=== PATIENT | male | born 1960 | race Caucasian/White ===

== ENCOUNTER 2024-09-04 20:21 | Inpatient (IN) | payer OTHER, SELFPAY ==
[2024-09-04] VITALS (7 sets, daily range): BP systolic 112–128; BP diastolic 65–79; BMI 27.8
--- NOTE | 2024-09-04 16:41 | ED.GENMED ---
ED Provider Triage
<Andriy Woods PA-C - Last Filed: 09/05/24 10:15>
-
Patient seen by provider in Triage?: Seen in Triage
Attestation: A medical screening examination has been initiated by a qualified medical provider. Based on the assessment performed at this time, it has been determined that an emergent medical condition may exist and the patient has been informed
that further medical evaluation and possible additional diagnostic testing may be needed.
HPI: 64-year-old male presents for evaluation after a unwitnessed syncopal event. He states he was walking up a flight of stairs when he began to feel sweaty and lightheaded, states he sat down to get his bearings when he lost consciousness. No
prior history of syncope. Denies any prodrome of chest pain, palpitations, or shortness of breath. Feels well currently. Does endorse mild dizziness ongoing for the past 2 to 3 days prior to this event. No new prescription medications
GENERAL: Alert , in no apparent distress
EYE: No visual abnormalities.
NECK: Trachea midline
ENT: No visible abnormalities.
LUNGS: No acute respiratory distress
NEUROLOGICAL: Alert and oriented
SKIN: Skin intact. No visible changes.
MUSCULOSKELETAL: Moving extremities normally
PSYCH: Normal and appropriate interaction.
A/P: Appears well, initial triage EKG shows normal sinus rhythm with PVCs, will check basic labs, vital signs normal
This is a medical evaluation conducted in person to initiate diagnostic evaluation and provide initial therapeutics. Please see further documentation by the treating clinician.
History of Present Illness
<Andriy Woods PA-C - Last Filed: 09/05/24 10:15>
General
Chief Complaint: Fainting/Passed Out
Time Seen by Provider: 09/04/24 19:19
<Santiago Holt MD - Last Filed: 09/04/24 19:42>
General
Source: patient
Exam Limitations: none
History of Present Illness
History of Present Illness:
Patient describing a few days of lightheadedness with standing. Feels slightly off. Also had some diarrhea with dark stool. No abdominal pain chest pain or shortness of breath. No significant symptoms at rest. Occasional Advil or Motrin but
nothing significant. Sounds like fairly regular alcohol use but mostly socially.
Past History
<Santiago Holt MD - Last Filed: 09/04/24 19:42>
Past History
ED Past Medical History: None
ED Past Surgical History: Urological and Other (Hernia repair)
Review of Systems
<Santiago Holt MD - Last Filed: 09/04/24 19:42>
Review of Systems
All Other Systems: Not applicable
Respiratory: Reports no symptoms; Denies trouble breathing
Cardiac: Denies chest pain or palpitations
Phy Exam
<Santiago Holt MD - Last Filed: 09/04/24 19:42>
Physical Exam
Physical Exam:
GENERAL: Alert and oriented in no apparent distress
EYE: Orbits normal.
NECK: Supple, no significant adenopathy.
ENT: Pharynx without erythema
CARDIAC: Borderline tachycardia and regular no murmur.
LUNGS: Clear breath sounds,normal
ABDOMEN: Soft, without focal tenderness or distention. Stool minimal in nature but clearly test positive
NEUROLOGICAL: Alert and oriented , grossly non-focal
SKIN: Warm and dry, no rash or lesion, no discoloration, skin intact.
MUSCULOSKELETAL: No edema,no deformity.Good color
PSYCH: Normal and appropriate interaction.
Course
<Andriy Woods PA-C - Last Filed: 09/05/24 10:15>
Orders/Labs/Results
Orders:
Orders
09/04/24 Dinner
Clear Liquid
At Your Request: Full Participation
09/04/24 16:21
Electrocardiogram (*1) Urgent
Reason for Study: Chest Pain
EKG- Treatment ONCE
09/04/24 16:49
Complete Blood Count/With Diff Urgent
Comprehensive Metabolic Panel Urgent
Ferritin Urgent
Comment: ADDON
Folate Urgent
Comment: ADDON
Iron Urgent
Comment: ADDON
Total Iron Binding Urgent
Comment: ADDPON
Vitamin B12 Urgent
Comment: ADDON
09/04/24 19:39
Cardiac Monitoring- Treatment ONCE
IV Insert/Care/Rem.- Treatment PRN
0.9% Sodium Chloride 500 ml [Nss] 500 ml IV BOLUS
Pantoprazole [Protonix IV] 80 mg IV NOW STA
09/04/24 20:04
Type+Screen Urgent
PT/INR [Prothrombin Time] Urgent
PTT Urgent
09/04/24 20:10
Admit/Transfer Patient As Directed
Co-Sign Provider:
Level of Care: Inpatient admission
Assign to:: Telemetry
Physician / Group: morgan
Diagnosis: syncope, UGIB
Reason for Telemetry: Arrhythmia
Date to Stop Telemetry: 09/07/24
Time to Stop Telemetry: 11:00
Reason for Hospitalization: syncope, UGIB
Expected length of stay greater than two midnights?: Yes
ELOS- Estimated Length of Stay in days: 2
I certify the patient meets the requirements for IP care: Yes
Code Status As Directed
Resuscitation Status: Full Code
PRN Pain Medication Management As Directed
May give lesser potent ordered pain med per pt: Yes
preference::
Protocol:: Medication orders for pain may be administered in a
manner that supports deferring to patient preference
when the pt is:
- Requesting an ordered lesser potent pain medication.
Least to most potent pain medications are defined
as: acetaminophen < NSAID < tramadol < opioids
(morphine, oxycodone, hydromorphone).
- Requesting a lesser dose of the same medication IF
ORDERED.
- Requesting a less intrusive route of administration
if both routes are prescribed by the provider (PO <
IV).
09/04/24 20:27
ABO2 Urgent
BBK Wristband Number:
Associate notified that ABO2 has been ordered: CAT
Date: 09/04/24
Time: 20:17
Move Coordinator ID: [id number]
09/04/24 21:41
Pantoprazole 80 mg/100 ml Nss [Protonix] 80 mg in 100 ml IV Q10H
09/04/24 21:41
Activity As Directed
Activity Level: As Tolerated
Pneumatic Compression Sleeves As Directed
Type: Knee high
Vital Signs As Directed
Frequency: Per unit guidelines
DX Deep Vein Thrombosis Video Routine
09/05/24 05:22
Complete Blood Count/With Diff IN AM
Comprehensive Metabolic Panel IN AM
09/05/24 Breakfast
NPO
Allow oral meds: Yes
Allow clear liquids: No
09/07/24 11:00
DC Protocol for Telemetry ONCE
Abnormal Lab Results
09/04/24 09/04/24
16:49 20:04
WBC 12.0 H 10^3/uL
(4.8-10.8)
RBC 3.21 L 10^6/uL
(4.70-6.10)
Hgb 9.6 L g/dL
(13.0-18.0)
Hct 27.4 L %
(39.0-52.0)
MPV 10.7 H fL
(7.4-10.4)
Abs Immat Gran (auto) 0.1 H 10^3/uL
(0-0.05)
Absolute Neuts (auto) 8.5 H 10^3/uL
(1.4-6.5)
Absolute Monos (auto) 0.9 H 10^3/uL
(0.1-0.6)
Immature Gran % 0.8 H %
(0-0.5)
Lymphocytes % 19.5 L %
(20.5-51.1)
APTT 22.2 L Sec
(23.4-35.0)
Chloride 108 H mmol/L
(98-107)
Carbon Dioxide 21 L mmol/L
(22-30)
BUN 43 H mg/dl
(9-20)
Glucose 129 H mg/dl
(70-99)
Total Protein 5.9 L g/dl
(6.3-8.2)
POC Glucose 125 H mg/dl
(70-99)
09/04/24 16:49
09/04/24 16:49
Vital Signs
Initial and Last Documented VS:
Initial Vital Signs
Temp Pulse Resp BP Pulse Ox
98.1 F 112 18 116/79 99
09/04/24 16:32 09/04/24 16:32 09/04/24 16:32 09/04/24 16:32 09/04/24 16:32
Last Documented Vital Signs
Temp Pulse Resp BP Pulse Ox
98.1 F 76 19 122/82 99
09/04/24 16:32 09/05/24 08:30 09/05/24 08:30 09/05/24 08:18 09/05/24 08:18
<Santiago Holt MD - Last Filed: 09/04/24 19:42>
Orders/Labs/Results
Orders:
Orders
09/04/24 Dinner
Clear Liquid
At Your Request: Full Participation
09/04/24 16:21
Electrocardiogram (*1) Urgent
Reason for Study: Chest Pain
EKG- Treatment ONCE
09/04/24 16:49
Complete Blood Count/With Diff Urgent
Comprehensive Metabolic Panel Urgent
Ferritin Urgent
Comment: ADDON
Folate Urgent
Comment: ADDON
Iron Urgent
Comment: ADDON
Total Iron Binding Urgent
Comment: ADDPON
Vitamin B12 Urgent
Comment: ADDON
09/04/24 19:39
Cardiac Monitoring- Treatment ONCE
IV Insert/Care/Rem.- Treatment PRN
0.9% Sodium Chloride 500 ml [Nss] 500 ml IV BOLUS
Pantoprazole [Protonix IV] 80 mg IV NOW STA
09/04/24 20:04
Type+Screen Urgent
PT/INR [Prothrombin Time] Urgent
PTT Urgent
09/04/24 20:10
Admit/Transfer Patient As Directed
Co-Sign Provider:
Level of Care: Inpatient admission
Assign to:: Telemetry
Physician / Group: morgan
Diagnosis: syncope, UGIB
Reason for Telemetry: Arrhythmia
Date to Stop Telemetry: 09/07/24
Time to Stop Telemetry: 11:00
Reason for Hospitalization: syncope, UGIB
Expected length of stay greater than two midnights?: Yes
ELOS- Estimated Length of Stay in days: 2
I certify the patient meets the requirements for IP care: Yes
Code Status As Directed
Resuscitation Status: Full Code
PRN Pain Medication Management As Directed
May give lesser potent ordered pain med per pt: Yes
preference::
Protocol:: Medication orders for pain may be administered in a
manner that supports deferring to patient preference
when the pt is:
- Requesting an ordered lesser potent pain medication.
Least to most potent pain medications are defined
as: acetaminophen < NSAID < tramadol < opioids
(morphine, oxycodone, hydromorphone).
- Requesting a lesser dose of the same medication IF
ORDERED.
- Requesting a less intrusive route of administration
if both routes are prescribed by the provider (PO <
IV).
09/04/24 20:27
ABO2 Urgent
BBK Wristband Number:
Associate notified that ABO2 has been ordered: CAT
Date: 09/04/24
Time: 20:17
Move Coordinator ID: [id number]
09/04/24 21:41
Pantoprazole 80 mg/100 ml Nss [Protonix] 80 mg in 100 ml IV Q10H
09/04/24 21:41
Activity As Directed
Activity Level: As Tolerated
Pneumatic Compression Sleeves As Directed
Type: Knee high
Vital Signs As Directed
Frequency: Per unit guidelines
DX Deep Vein Thrombosis Video Routine
09/05/24 05:22
Complete Blood Count/With Diff IN AM
Comprehensive Metabolic Panel IN AM
09/05/24 Breakfast
NPO
Allow oral meds: Yes
Allow clear liquids: No
09/07/24 11:00
DC Protocol for Telemetry ONCE
Abnormal Lab Results
09/04/24 09/04/24
16:49 20:04
WBC 12.0 H 10^3/uL
(4.8-10.8)
RBC 3.21 L 10^6/uL
(4.70-6.10)
Hgb 9.6 L g/dL
(13.0-18.0)
Hct 27.4 L %
(39.0-52.0)
MPV 10.7 H fL
(7.4-10.4)
Abs Immat Gran (auto) 0.1 H 10^3/uL
(0-0.05)
Absolute Neuts (auto) 8.5 H 10^3/uL
(1.4-6.5)
Absolute Monos (auto) 0.9 H 10^3/uL
(0.1-0.6)
Immature Gran % 0.8 H %
(0-0.5)
Lymphocytes % 19.5 L %
(20.5-51.1)
APTT 22.2 L Sec
(23.4-35.0)
Chloride 108 H mmol/L
(98-107)
Carbon Dioxide 21 L mmol/L
(22-30)
BUN 43 H mg/dl
(9-20)
Glucose 129 H mg/dl
(70-99)
Total Protein 5.9 L g/dl
(6.3-8.2)
POC Glucose 125 H mg/dl
(70-99)
09/04/24 16:49
09/04/24 16:49
Vital Signs
Initial and Last Documented VS:
Initial Vital Signs
Temp Pulse Resp BP Pulse Ox
98.1 F 112 18 116/79 99
09/04/24 16:32 09/04/24 16:32 09/04/24 16:32 09/04/24 16:32 09/04/24 16:32
Last Documented Vital Signs
Temp Pulse Resp BP Pulse Ox
98.1 F 76 19 122/82 99
09/04/24 16:32 09/05/24 08:30 09/05/24 08:30 09/05/24 08:18 09/05/24 08:18
<Santiago Holt MD - Last Filed: 09/04/24 19:42>
MDM/Problems Addressed
Differential Diagnosis Includes:
Patient with upper GI bleed. Hemoglobin 9.6 which I am sure is not his baseline. Elevated BUN. Positive stool. Protonix admission type and screen
<Andriy Woods PA-C - Last Filed: 09/05/24 10:15>
*Critical Care Note
Total Time (30-74mins, 75-104mins- exclusive of procedures): Not Applicable
<Santiago Holt MD - Last Filed: 09/04/24 19:42>
*Pulse Oximetry
Patient hypoxic: no
*EKG
Interpreted by ED Provider?: Yes
Interpretation: abnormal
Comparison EKG: no comparison EKG present
Heart Rate: 88
Rate: normal
Rhythm: sinus and PAC's
[place]: normal axis
Interval: normal interval
QRS Pattern: normal QRS
Ischemia: non-specific ST changes
ED Attending Note
<Andriy Woods PA-C - Last Filed: 09/05/24 10:15>
-
Portions of this chart may have been created with voice recognition software.� Occasional wrong word or��sound alike� substitutions may have occurred due to the inherent limitations of voice recognition software.
Discharge Plan
Departure
Patient Disposition: Admit
Date of Disposition: 09/04/24
Time of Disposition: 19:41
Presentation/result/management discussed w/ accepting MD/DO: Hospitalist
Discharge Problem:
Upper GI bleed
Interventions
Interventions:
*Risk Screen - Suicide Last Done: 09/04/24 16:32
*General Assessment Last Done: 09/04/24 17:59
*Neglect/Abuse Screening Last Done: 09/04/24 17:59
ED- Fall Risk Assessment Last Done: 09/04/24 17:59
*ED COVID-19 Vaccine History Last Done: 09/04/24 16:32
ED- Cardiac Assessment Last Done: 09/04/24 18:01
ED- Neurological Assessment Last Done: 09/04/24 17:59
[2024-09-04 16:51] LABS: Glucose - Point of Care 125 mg/dl (70-99)
[2024-09-04 17:03] LABS: % Basophils 0.6 % (0-2); % Eosinophils 0.9 % (0-6); % Immature Granulocytes 0.8 % (0-0.5); % Lymphocytes 19.5 % (20.5-51.1); % Monocytes 7.6 % (1.7-9.3); % Neutrophils 70.6 % (42.2-75.2); Absolute Basophils 0.1 10^3/uL (0-0.2); Absolute Eosinophils 0.1 10^3/uL (0-0.7); Absolute Immature Granulocytes 0.1 10^3/uL (0-0.05); Absolute Lymphocytes 2.3 10^3/uL (1.2-3.4); Absolute Monocytes 0.9 10^3/uL (0.1-0.6); Absolute Neutrophils 8.5 10^3/uL (1.4-6.5); Hematocrit 27.4 % (39.0-52.0); Hemoglobin 9.6 g/dL (13.0-18.0); Mean Corpuscular Hgb 29.9 pg (27.0-31.0); Mean Corpuscular Volume 85.4 fL (80.0-94.0); Mean Platelet Volume 10.7 fL (7.4-10.4); Nucleated Red Blood Cells % 0 % (-); Platelet Count 193 10^3/uL (130-400); Red Blood Cell Count 3.21 10^6/uL (4.70-6.10); Red Cell Dist. Width 14.2 % (11.5-14.5)
[2024-09-04 17:16] LABS: ALT (SGPT) 22 U/L (0-50); AST (SGOT) 27 U/L (17-59); Albumin 3.6 g/dl (3.5-5.0); Alkaline Phosphatase 70 U/L (38-126); Blood Urea Nitrogen 43 mg/dl (9-20); Calcium 9.1 mg/dl (8.4-10.2); Carbon Dioxide 21 mmol/L (22-30); Chloride 108 mmol/L (98-107); Glucose 129 mg/dl (70-99); Potassium 4.4 mmol/L (3.5-5.1); Sodium 140 mmol/L (135-145); Total Bilirubin 0.2 mg/dl (0.2-1.3); Total Protein 5.9 g/dl (6.3-8.2); eGFR > 60.00
[2024-09-04] MEDS: NSS 500 IV (19:59)
[2024-09-04] MEDS: PROTONIX IV 80 MG IV (20:02)
--- NOTE | 2024-09-04 20:19 | HPS.HSE ---
Family Physician
-
Family Physician: Santiago Mcdonald
Chief Complaint
-
syncope
History of Present Illness
64-year-old male past medical history of borderline elevated hypertension, presenting with unwitnessed syncopal episode. He was walking up a flight of stairs when he began to feel sweaty and lightheaded. He sat down to get his bearings when he
lost consciousness. Denies prior history of syncope. Denies prodrome of chest pain, palpitations or shortness of breath. He feels well currently. He has been having intermittent dizziness for the past 2 to 3 days prior to this event. Denies any
new medications.
His father had renal cancer. His mother had heart disease.
Medical History
Past Medical History
Past Medical History: Reports Other (borderline elevated hypertension)
Past Surgical History: Reports None
Social History
Tobacco: Non-smoker
Alcohol: Occasional
Drug: None
Family History
Family History: Not pertinent
Allergies / Home Medications
Allergies reflects when Allergies were last updated in [employer].
Home Medications with original date entered in [facility]
Allergy/Medication List:
Allergies
Allergy/AdvReac Type Severity Reaction Status Date / Time
No Known Allergies Allergy Verified 09/04/24 16:43
Home Medications
No Meds [No Current Medications] 09/04/24
Review of Systems
-
History Source: Patient
A 12 point ROS was completed and negative except as noted: Yes
Constitutional: Reports No Symptoms
EENT: Reports No Symptoms
Respiratory: Reports No Symptoms
Cardiac: Reports No Symptoms
Abdomen/GI: Reports See HPI
: Reports No Symptoms
Musculoskeletal: Reports No Symptoms
Skin: Reports No Symptoms
Neurological: Reports No Symptoms
Endocrine: Reports No Symptoms
Hematologic/Lymphatic: Reports No Symptoms
Psych: Reports No Symptoms
Physical Exam
Vital Signs
Vital Signs
Temp Pulse Resp BP Pulse Ox
98.1 F 83 16 115/75 100
09/04/24 16:32 09/04/24 20:09 09/04/24 20:09 09/04/24 20:09 09/04/24 20:09
Physical Exam
General: Well Developed, Well Nourished and No Apparent Distress
HEENT: NormoCephalic, Moist mucous membranes and Atraumatic
Respiratory: Clear
Cardiac: S1/S2 and Regular Rhythm; No Murmur or Rub
GI: Soft, Non Tender, Non Distended and Normal Bowel Sounds; No Organomegaly
Rectal: Deferred by Provider
Musculoskeletal: No Clubbing, No Cyanosis and No Edema
Skin: No Rash
Neuro: Nonfocal/grossly intact
Laboratory Results
-
09/04/24 16:49
09/04/24 16:49
Laboratory Results
Total Bilirubin 0.2 mg/dl (0.2-1.3) 09/04/24 16:49
AST 27 U/L (17-59) 09/04/24 16:49
ALT 22 U/L (0-50) 09/04/24 16:49
Alkaline Phosphatase 70 U/L (38-126) 09/04/24 16:49
Data Reviewed
-
Lab Data: Labs Reviewed by me
Old Records: Reviewed
Impression/Plan
-
IMPRESSION:
PLAN:
# Upper GI bleeding
# Syncopal episode secondary to GI bleeding
-IV fluids given
-Hemoglobin 9.6
-Type and screen
-Check iron studies, B12 and folate
-clears, N.p.o. past midnight
-Protonix drip
-GI consulted
Borderline elevated hypertension
-Never on antihypertensive therapy
Full code
DVT prophylaxis�SCDs
N.p.o.
[2024-09-04 20:30] LABS: INR 1.14; PT 14.4 Sec (11.4-14.6)
[2024-09-04 21:05] LABS: APTT 22.2 Sec (23.4-35.0)
[2024-09-04] MEDS: PROTONIX 100 IV (21:50)
[2024-09-04 22:15] LABS: Iron 129 ug/dl (49-181)
[2024-09-04 22:24] LABS: Percent Saturation 39 % (20-50); Total Iron Binding Capacity 329 ug/dl (261-462)
[2024-09-05] VITALS (18 sets, daily range): BP systolic 98–134; BP diastolic 64–82; BMI 27.5
[2024-09-05 03:08] LABS: Ferritin 60.2 ng/ml (17.9-464.0)
[2024-09-05 03:39] LABS: Folate 6.2 ng/ml (2.76-20); Vitamin B12 250 pg/ml (239-931)
[2024-09-05 05:38] LABS: % Basophils 0.6 % (0-2); % Eosinophils 1.3 % (0-6); % Immature Granulocytes 0.3 % (0-0.5); % Lymphocytes 30.4 % (20.5-51.1); % Monocytes 8.6 % (1.7-9.3); % Neutrophils 58.8 % (42.2-75.2); Absolute Eosinophils 0.1 10^3/uL (0-0.7); Absolute Lymphocytes 1.9 10^3/uL (1.2-3.4); Absolute Monocytes 0.5 10^3/uL (0.1-0.6); Absolute Neutrophils 3.7 10^3/uL (1.4-6.5); Hematocrit 22.5 % (39.0-52.0); Hemoglobin 7.7 g/dL (13.0-18.0); Mean Corp Hgb Conc. 34.2 g/dL (33.0-37.0); Mean Corpuscular Hgb 30.3 pg (27.0-31.0); Mean Corpuscular Volume 88.6 fL (80.0-94.0); Nucleated Red Blood Cells % 0 % (-); Red Blood Cell Count 2.54 10^6/uL (4.70-6.10); Red Cell Dist. Width 14.4 % (11.5-14.5); White Blood Cell Count 6.3 10^3/uL (4.8-10.8)
[2024-09-05 05:56] LABS: ALT (SGPT) 21 U/L (0-50); AST (SGOT) 25 U/L (17-59); Albumin 2.9 g/dl (3.5-5.0); Alkaline Phosphatase 45 U/L (38-126); Blood Urea Nitrogen 27 mg/dl (9-20); Carbon Dioxide 23 mmol/L (22-30); Chloride 109 mmol/L (98-107); Estimated Creatinine Clearance 110 ml/min; Glucose 107 mg/dl (70-99); Potassium 3.8 mmol/L (3.5-5.1); Sodium 141 mmol/L (135-145); Total Bilirubin 0.3 mg/dl (0.2-1.3); Total Protein 5.1 g/dl (6.3-8.2); eGFR > 60.00
[2024-09-05 05:59] LABS: Mean Platelet Volume 11.1 fL (7.4-10.4); Platelet Count 91 10^3/uL (130-400)
[2024-09-05] MEDS: PROTONIX 100 IV ×2 (08:26→17:27)
--- NOTE | 2024-09-05 08:55 | CON.GI ---
Addendum entered and electronically signed by Adryan Lowe MD 09/05/24 14:27:
I saw and examined the patient.
The ENVIRONMENTAL AIR SPECIALIST or PA's note was reviewed and I agree with the note.
Comment: 64-year-old male with no significant past medical history who takes NSAIDs and drinks alcohol presenting with melena. Differential diagnosis includes but not limited to peptic ulcer disease, esophageal varices as he does have
thrombocytopenia, history of AVM in the colon which may also be the source, malignancy. Plan for upper endoscopy. We discussed the risk, benefits, and alternatives to upper endoscopy. The risks include bleeding, infection, perforation, missed
lesion, and cardiopulmonary complications from anesthesia. Continue PPI and NPO. Further recommendations pending endoscopy.
Original Note:
Consultation
-
Date/Time Consultation Requested: 09/04/242022
Date/Time Consultation Performed: 09/05/24844
Requesting Provider: Dr. Mcneal
Performing Provider: Dr. Lowe
Reason for Consultation: GI Bleed
Medical History
Chief Complaint / HPI
Chief Complaint: syncope
History of Present Illness:
64-year-old male with no significant past medical history currently taking no medications at home although will take approximately 600 mg of Advil 3 times a month for general muscle aches/pains who presents to the emergency room with syncope/passing
out at home. Asked to evaluate for acute blood loss anemia/GI bleed/melena. The patient states that he had a significant amount of travel for pleasure and work recently going back and forth between [place], [place] and [place] returning this past
Tuesday. The patient states that on Tuesday he thought he felt a little fatigued. On Tuesday he had a golf outing which he states he felt normal. He states he had 2 vodka clubs and nibbled on food throughout the day. On Tuesday he states he felt
okay. On Tuesday he picked up his grandson from school. He came home he walked up the stairs when he got to the top of the stairs he felt a little dizzy. He states then he came down the stairs he felt even more dizzy. He went to the garage sat
down and passed out. Of note he was having melena for 2 days. He thought that the black sticky foul-smelling stools were from something he ate. He did not recognize this as possible GI bleeding. He denies any fevers, chills, nausea, vomiting,
hematochezia, dysphagia or odynophagia. He denies any early satiety or unintentional weight loss. His last NSAID consumption was approximately 1 week ago. When he does take these he takes 600 mg of Advil. Prior to that it was probably a week
prior. He only takes this approximately 3 times a month for muscle aches and strains. He does not smoke. He drinks approximately 6 times a week. This is in the form of wine or vodka clubs. He states during vacations he may drink a little more.
He has never had any signs of GI distress or upper GI issues. His last colonoscopy was in 2018. He did have a single nonbleeding transverse colon AVM. He has had no signs of GI bleeding in the past. He has a maternal grandfather with history of
colon cancer. His father had a history of liver cancer after having kidney cancer. No family history of inflammatory bowel disease. At the present time his hemoglobin is 7.7 down from 9.6. His platelets are 91 down from 193, his INR is 1.14,
sodium 141, potassium 3.8, chloride 109, CO2 23, BUN 27 (down from 43), creatinine 0.7, glucose 107, BUN 2.9. Stool in the emergency room was OB positive. His vital signs are stable.
Past Medical History
Past Medical History: None
Past Surgical History: None
Social History
Tobacco: Non-Smoker
Alcohol: Daily (Approximately 1 glass of wine/vodka club 6 out of 7 days a week)
Drug: None
Personal:
Living: With Family
Employment: Employed
Family History
Family History: Other (Father history liver cancer, maternal grandfather colon cancer, no family history of inflammatory bowel disease)
Allergies / Home Medications
Allergy/AdvReac Type Severity Reaction Status Date / Time
No Known Allergies Allergy Verified 09/04/24 16:43
�Medication �Instructions �Recorded
No Meds [No Current Medications] 09/04/24
Review of Systems
-
All other systems: A 12 pt ROS was Negative except as stated above in HPI
Vital Signs
Temp Pulse Resp BP Pulse Ox
98.1 F 76 19 122/82 99
09/04/24 16:32 09/05/24 08:30 09/05/24 08:30 09/05/24 08:18 09/05/24 08:18
Physical Exam
Exam
General: No Apparent Distress
HEENT: Anicteric
Respiratory: Clear
Cardiac: Regular Rhythm
GI: Soft, Non Tender, Non Distended and Normal Bowel Sounds
Rectal: Other (Stool OB positive by ER)
Musculoskeletal: No Edema
Skin: Warm and Dry
Neuro: AO x 3
Psych: Calm
Results
WBC 6.3 10^3/uL (4.8-10.8) 09/05/24 05:22
Hgb 7.7 g/dL (13.0-18.0) L 09/05/24 05:22
Hct 22.5 % (39.0-52.0) L 09/05/24 05:22
MCV 88.6 fL (80.0-94.0) 09/05/24 05:22
Plt Count 91 10^3/uL (130-400) L D 09/05/24 05:22
Absolute Neuts (auto) 3.7 10^3/uL (1.4-6.5) 09/05/24 05:22
PT 14.4 Sec (11.4-14.6) 09/04/24 20:04
INR 1.14 09/04/24 20:04
APTT 22.2 Sec (23.4-35.0) L 10/08/24 20:04
Sodium 141 mmol/L (135-145) 09/05/24 05:22
Potassium 3.8 mmol/L (3.5-5.1) 09/05/24 05:22
Chloride 109 mmol/L (98-107) H 09/05/24 05:22
Carbon Dioxide 23 mmol/L (22-30) 09/05/24 05:22
BUN 27 mg/dl (9-20) H 09/05/24 05:22
Creatinine 0.7 mg/dL (0.7-1.3) 09/05/24 05:22
Calcium 8.0 mg/dl (8.4-10.2) L 09/05/24 05:22
Total Bilirubin 0.3 mg/dl (0.2-1.3) 09/05/24 05:22
AST 25 U/L (17-59) 09/05/24 05:22
ALT 21 U/L (0-50) 09/05/24 05:22
Alkaline Phosphatase 45 U/L (38-126) 09/05/24 05:22
Diagnostic Image Results:
No current imaging
Prior GI Procedures:
EGD: None
Colonoscopy: 09/14/2018 ([facility]) - Nodular ileal mucosa. Biopsied.
- Diverticulosis in the sigmoid colon.
- Non-bleeding external hemorrhoids.
- A single non-bleeding colonic angioectasia (transverse)
Colonoscopy 07/27/2013 ([facility]) - A single erosion in the terminal ileum. This was
biopsied.
- One 4 mm polyp in the cecum. Resected and retrieved.
- One 24 mm polyp at the hepatic flexure. Likely lipoma.
This was biopsied.
- One 4 mm polyp in the distal transverse colon.
Resected and retrieved.
- One 6 mm polyp at 32 cm proximal to the anus. Resected
and retrieved.
- One 4 mm polyp in the rectum. Resected and retrieved.
- Non-bleeding external hemorrhoids.
- Diverticulosis in the sigmoid colon.
- A single non-bleeding colonic angioectasia.
Assessment / Plan
-
64-year-old male with no significant past medical history currently taking no medications at home although will take approximately 600 mg of Advil 3 times a month for general muscle aches/pains who presents to the emergency room with syncope/passing
out at home. Asked to evaluate for acute blood loss anemia/GI bleed/melena. Patient with melena x 2 days. History of Advil 600 mg 3 times a month. No current upper GI complaints however BUN out of proportion from creatinine. Does have a history
of transverse colon AVM. Currently hemoglobin 7.7 down from 9.6. He is NPO. Vital signs are stable. INR 1.14. Platelets have dropped from 193 to 91 this a.m. Patient is consented for blood products if needed. Discussed with patient EGD and/or
need for deep enteroscopy or other procedures.
Impression:
Melena
GI bleed
Acute blood loss anemia
Syncope
Acute thrombocytopenia (mild)
History of transverse colon AVM
History of colon polyps
Plan:
-N.p.o.
-Continue Protonix drip
-EGD today
-Continue to monitor CBC
-Further recommendations to be forthcoming
-Patient will need follow-up colonoscopy in the future given history of colon polyps. Will be due for repeat screening.
-
-
Thank you for consultation and allowing me to participate in the patient's care. Please call the telephone instrument supervisor GI physician during the after hours with any questions or concerns.
--- NOTE | 2024-09-05 13:06 | W.PN.HOSP.TC ---
Today's Communication/Plan
-
Monitor vital signs see plan
Continue with PPI drip
Start vitamin B12
EGD today
NPO
Discussed with spouse at bedside
Assessment / Plan
Assessment / Plan
General: Well Developed, Well Nourished and No Apparent Distress
HEENT: NormoCephalic, Moist mucous membranes and Atraumatic
Respiratory: Clear
Cardiac: S1/S2 and Regular Rhythm; No Murmur or Rub
GI: Soft, Non Tender, Non Distended and Normal Bowel Sounds
Musculoskeletal: No Edema
Neuro: Nonfocal/grossly intact
Syncope likely 2/2 acute GI bleed, suspect upper GI bleeding
-Hemoglobin 7.7; recheck, possible would need transfusion
NPO; plan for EGD
GI following
-Type and screen
-Check iron studies, B12 and folate
-Protonix drip
Vitamin B12 deficiency
Start vitamin B12
Borderline elevated hypertension
-Never on antihypertensive therapy
Full code
DVT prophylaxis�SCDs
Anticipated Discharge: 24 - 48 hours
Subjective/Interval History
-
Date of Service: September 05, 2024
denies pain
Objective Data
-
Labs:
Laboratory Results
09/05/24 09/05/24
05:22 13:06
WBC 6.3
Hgb 7.7 L Pending
Hct 22.5 L Pending
Plt Count 91 L D
Sodium 141
Potassium 3.8
Chloride 109 H
Carbon Dioxide 23
BUN 27 H
Creatinine 0.7
Glucose 107 H
Calcium 8.0 L
Total Bilirubin 0.3
AST 25
ALT 21
Alkaline Phosphatase 45
Vital Signs:
Vital Signs
Temp Pulse Resp BP Pulse Ox
98.1 F 76 19 122/82 99
09/04/24 16:32 09/05/24 08:30 09/05/24 08:30 09/05/24 08:18 09/05/24 08:18
[2024-09-05 13:22] LABS: Hematocrit 23.8 % (39.0-52.0); Hemoglobin 8.3 g/dL (13.0-18.0)
--- NOTE | 2024-09-05 14:45 | PTCARENOTE ---
Received pt from GI lab. Report from Carolina NORMAN. Pt awake, alert and oriented x 3. Pt has no c/o pain at this time. Pt VSS 100% on RA. NSR on tele. Protonix gtt infusing per orders.Pt oriented to room, call gutiérrez within reach, plan of care continues.
[2024-09-05] MEDS: OMNIPAQUE 50 ML PO (15:46)
--- NOTE | 2024-09-05 17:01 | CM ---
CM attempted to complete IA for Zeus, however he was not available due to testing and returned to the unit late in the day. CM to folow up in am.
[2024-09-06] VITALS (9 sets, daily range): BP systolic 107–148; BP diastolic 59–79
[2024-09-06] MEDS: PROTONIX 100 IV (03:40)
[2024-09-06 07:10] LABS: % Basophils 0.5 % (0-2); % Eosinophils 1.1 % (0-6); % Immature Granulocytes 0.5 % (0-0.5); % Lymphocytes 20.9 % (20.5-51.1); % Monocytes 9.4 % (1.7-9.3); % Neutrophils 67.6 % (42.2-75.2); Absolute Eosinophils 0.1 10^3/uL (0-0.7); Absolute Lymphocytes 1.3 10^3/uL (1.2-3.4); Absolute Monocytes 0.6 10^3/uL (0.1-0.6); Absolute Neutrophils 4.3 10^3/uL (1.4-6.5); Hematocrit 22.6 % (39.0-52.0); Hemoglobin 7.8 g/dL (13.0-18.0); Mean Corp Hgb Conc. 34.5 g/dL (33.0-37.0); Mean Corpuscular Volume 89.7 fL (80.0-94.0); Mean Platelet Volume 10.9 fL (7.4-10.4); Nucleated Red Blood Cells % 0 % (-); Platelet Count 105 10^3/uL (130-400); Red Blood Cell Count 2.52 10^6/uL (4.70-6.10); Red Cell Dist. Width 14.6 % (11.5-14.5); White Blood Cell Count 6.4 10^3/uL (4.8-10.8)
[2024-09-06 07:16] LABS: ALT (SGPT) 22 U/L (0-50); AST (SGOT) 26 U/L (17-59); Alkaline Phosphatase 50 U/L (38-126); Blood Urea Nitrogen 14 mg/dl (9-20); Calcium 8.4 mg/dl (8.4-10.2); Carbon Dioxide 25 mmol/L (22-30); Chloride 108 mmol/L (98-107); Estimated Creatinine Clearance 93 ml/min; Glucose 102 mg/dl (70-99); Potassium 4.1 mmol/L (3.5-5.1); Sodium 141 mmol/L (135-145); Total Bilirubin 0.3 mg/dl (0.2-1.3); Total Protein 5.3 g/dl (6.3-8.2); eGFR > 60.00
[2024-09-06] MEDS: CYANOCOBALAMIN 1000 MCG IM (07:49)
[2024-09-06 08:04] LABS: Hepatitis C Antibody Negative (Negative)
--- NOTE | 2024-09-06 09:56 | W.PN.GI.CBS2 ---
Addendum entered and electronically signed by Adryan Lowe MD 09/06/24 16:02:
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
Of note I spoke with Dr. Hamlin and he will evaluate the ulcer if it is not actively bleeding, patient could potentially be discharged with outpatient follow-up. He suspects he may need chemotherapy prior to surgery to shrink the tumor prior to
surgical remover. I discussed this with the patient.
I gave him options of [facility] as options for follow-up.
Original Note:
Today's Communication / Plan
-
eus
Assessment / Plan
-
64-year-old male with no significant past medical history with NSAID/EtOH use p/w melena found on endoscopy 09/05 to have a large ulcerated gastric submucosal mass.
Underwent CT yesterday has 15 cm gastric lesion. I reviewed with pt/family CT findings.
This is all most c/w GIST.
I spoke with family and patient ate length.
Plan for EUS today vs tomorrow pending scheduling.
Pending findings likely will benefit from transfer for surgical evaluation which I suspect will be needed based on size and ulceration of lesion.
Updated hospitalist.
Total Time Spent with Patient (in minutes): 50
Subjective
Subjective
Date of Service: September 06, 2024
No events overnight
Objective
Data Reviewed
Laboratory Data:
Laboratory Results
09/06/24 06:43
09/06/24 06:43
Laboratory Results
PT 14.4 Sec (11.4-14.6) 09/04/24 20:04
INR 1.14 09/04/24 20:04
APTT 22.2 Sec (23.4-35.0) L 09/04/24 20:04
Total Bilirubin 0.3 mg/dl (0.2-1.3) 09/06/24 06:43
AST 26 U/L (17-59) 09/06/24 06:43
ALT 22 U/L (0-50) 09/06/24 06:43
Alkaline Phosphatase 50 U/L (38-126) 09/06/24 06:43
Vital Signs and I&O:
Vital Signs
Temp Pulse Resp BP Pulse Ox
98.1 F 76 16 108/70 98
09/06/24 07:55 09/06/24 07:55 09/06/24 07:55 09/06/24 07:55 09/06/24 08:48
I&O
09/05/24 09/06/24 09/07/24
06:59 06:59 06:59
Intake Total 480 / 480
Balance 480 / 480
Physical Exam
Physical Exam
Cardiology: Normal Sinus Rhythm
Pulmonary: Wheezes
GI: Non Distended and Non Tender
--- NOTE | 2024-09-06 12:06 | W.PN.HOSP.TC ---
Today's Communication/Plan
-
Monitor vital signs see plan
EUS per GI
Family updated at bedside
cw vit B12
monitor hgb
Assessment / Plan
Assessment / Plan
General: Well Developed, Well Nourished and No Apparent Distress
HEENT: NormoCephalic, Moist mucous membranes and Atraumatic
Respiratory: Clear
Cardiac: S1/S2 and Regular Rhythm; No Murmur or Rub
GI: Soft, Non Tender, Non Distended and Normal Bowel Sounds
Musculoskeletal: No Edema
Neuro: Nonfocal/grossly intact
Syncope likely 2/2 acute GI bleed, suspect upper GI bleeding
-Hemoglobin 7.7; recheck, possible would need transfusion
Status post EGD 09/05 with submuc[address] mass. Loo CT with possible gastric mass. Plan for EUS today or tomorrow pending timing with GI. Patient and family updated.
Also had nonbleeding ulcer
No further signs of bleeding, continue to monitor hemoglobin
GI following
-Protonix
Vitamin B12 deficiency
Start vitamin B12
Borderline elevated hypertension
-Never on antihypertensive therapy
Full code
DVT prophylaxis�SCDs
Anticipated Discharge: 24 - 48 hours
Subjective/Interval History
-
Date of Service: September 06, 2024
denies pain
Objective Data
-
Labs:
Laboratory Results
09/06/24
06:43
WBC 6.4
Hgb 7.8 L
Hct 22.6 L
Plt Count 105 L
Sodium 141
Potassium 4.1
Chloride 108 H
Carbon Dioxide 25
BUN 14
Creatinine 0.8
Glucose 102 H
Calcium 8.4
Total Bilirubin 0.3
AST 26
ALT 22
Alkaline Phosphatase 50
Vital Signs:
Vital Signs
Temp Pulse Resp BP Pulse Ox
98.7 F 84 16 124/72 100
09/06/24 11:17 09/06/24 11:17 09/06/24 11:17 09/06/24 11:17 09/06/24 11:17
I&O
09/05/24 09/06/24 09/07/24
06:59 06:59 06:59
Intake Total 480 / 480
Balance 480 / 480
--- NOTE | 2024-09-06 15:37 | PN.CDI ---
CDI
- -
CDI:
Physician Documentation Request
Admit Date: 09/04/24 20:21
Dear Doctor Michael
Patient presents after syncopal episode secondary to acute GI bleed.
09/06 progress note states '-Hemoglobin 7.7; recheck, possible would need transfusion'
H/H resulted as follows:
Laboratory Tests
09/04/24 09/05/24 09/06/24
16:49 05:22 06:43
Hgb 9.6 L 7.7 L 7.8 L
Hct 27.4 L 22.5 L 22.6 L
Could you please provide a diagnosis that supports the above lab abnormalities and additional evaluation, monitoring and/or treatment rendered:
Acute blood loss anemia
Anemia other (please specify)
lab value clinically insignificant
Other
Use of terms such as suspected, likely, concern for, or probable (associated with a specific diagnosis that is being evaluated, monitored, or treated as if it exists) are acceptable and can be coded in the inpatient setting, when documented at the
time of discharge.
Thank you,
Margaux Dewey RN, BSN
CDI Specialist
tiger text
Please use your independent medical judgment in providing your response.
--- NOTE | 2024-09-06 17:19 | W.PN.UPDATE ---
Update Note
Progress Note Update
D/w Dr. Hamlin- pseudocyst vs cystic lesion of pancreas pending fluid analysis
if Hb stable and no further bleeding possible dc tmwr
I updated family and pt at bedside
I put in clear liquid diet
[2024-09-06] MEDS: NSS 500 IV (17:29)
--- NOTE | 2024-09-06 19:16 | PTCARENOTE ---
Pt back from EUS. VSS. Clears ordered and pt tolerating.
[2024-09-06] MEDS: NSS (PRESERVATIVE FREE) 10 ML IV (20:17)
[2024-09-06] MEDS: PROTONIX IV 40 MG IV (20:17)
[2024-09-07 03:23] VITALS: BP 128/68
[2024-09-07] MEDS: MYLICON 80 MG PO (03:56)
[2024-09-07] MEDS: METAMUCIL, KONSYL 1 PACKET PO (05:21)
[2024-09-07 07:40] VITALS: BP 118/71
[2024-09-07 07:42] LABS: % Basophils 0.2 % (0-2); % Eosinophils 0.6 % (0-6); % Immature Granulocytes 0.7 % (0-0.5); % Lymphocytes 12.2 % (20.5-51.1); % Monocytes 9.6 % (1.7-9.3); % Neutrophils 76.7 % (42.2-75.2); Absolute Eosinophils 0.1 10^3/uL (0-0.7); Absolute Immature Granulocytes 0.1 10^3/uL (0-0.05); Absolute Lymphocytes 1.1 10^3/uL (1.2-3.4); Absolute Monocytes 0.8 10^3/uL (0.1-0.6); Absolute Neutrophils 6.7 10^3/uL (1.4-6.5); Hematocrit 24.4 % (39.0-52.0); Hemoglobin 8.2 g/dL (13.0-18.0); Mean Corp Hgb Conc. 33.6 g/dL (33.0-37.0); Mean Corpuscular Volume 89.4 fL (80.0-94.0); Mean Platelet Volume 10.8 fL (7.4-10.4); Nucleated Red Blood Cells % 0 % (-); Platelet Count 130 10^3/uL (130-400); Red Blood Cell Count 2.73 10^6/uL (4.70-6.10); Red Cell Dist. Width 15.4 % (11.5-14.5); White Blood Cell Count 8.8 10^3/uL (4.8-10.8)
[2024-09-07 07:59] LABS: ALT (SGPT) 23 U/L (0-50); AST (SGOT) 26 U/L (17-59); Albumin 3.2 g/dl (3.5-5.0); Alkaline Phosphatase 57 U/L (38-126); Blood Urea Nitrogen 12 mg/dl (9-20); Calcium 8.5 mg/dl (8.4-10.2); Carbon Dioxide 24 mmol/L (22-30); Chloride 103 mmol/L (98-107); Estimated Creatinine Clearance 83 ml/min; Glucose 112 mg/dl (70-99); Potassium 3.8 mmol/L (3.5-5.1); Sodium 136 mmol/L (135-145); Total Bilirubin 0.6 mg/dl (0.2-1.3); Total Protein 5.5 g/dl (6.3-8.2); eGFR > 60.00
[2024-09-07] MEDS: PROTONIX IV 40 MG IV ×2 (09:15→20:32)
[2024-09-07] MEDS: NSS (PRESERVATIVE FREE) 10 ML IV ×2 (09:15→20:32)
[2024-09-07] MEDS: CIPRO 400 MG 200 IV ×2 (09:15→22:18)
[2024-09-07] MEDS: CYANOCOBALAMIN 1000 MCG IM (09:15)
--- NOTE | 2024-09-07 11:49 | CM ---
Addendum entered by Mary Doe 09/07/24 15:29:
Pt for possible discharge to home tomorrow with no needs.
Diet is being advanced to low-fat.
CM will continue to follow.
Plan: Discharge to home with no needs anticipated
Original Note:
CM met with Zeus and his daughter this am at bedside. He anticipates discharge to home today pending lab results.
CM will continue to follow.
Plan: Discharge to home with no needs anticipated today.
[2024-09-07 11:50] VITALS: BP 136/76
--- NOTE | 2024-09-07 13:22 | W.PN.HOSP.TC ---
Today's Communication/Plan
-
Monitor vital signs see plan
Spoke with GI, advance diet to low-fat and will monitor
Possible DC tomorrow
Pathology pending
Discussed with family at bedside
Assessment / Plan
Assessment / Plan
General: Well Developed, Well Nourished and No Apparent Distress
HEENT: NormoCephalic, Moist mucous membranes and Atraumatic
Respiratory: Clear
Cardiac: S1/S2 and Regular Rhythm; No Murmur or Rub
GI: Soft, Non Tender, Non Distended and Normal Bowel Sounds
Musculoskeletal: No Edema
Neuro: Nonfocal/grossly intact
Syncope likely 2/2 acute GI bleed, suspect upper GI bleeding
Acute blood loss anemia 2/2 GI bleed
Status post EGD 09/05 [address] mass[address] Loo CT with possible gastric mass. s/o EUS with FNA; per GI now it appears like pancreatic cyst. biopsy pending. started on low fat. Per Gi possible dc tomorrow. Patient and family updated.
Also had nonbleeding ulcer
No further signs of bleeding, continue to monitor hemoglobin
GI following
-Protonix
Vitamin B12 deficiency
Started vitamin B12
Borderline elevated hypertension
-Never on antihypertensive therapy
Full code
DVT prophylaxis�SCDs
Anticipated Discharge: Within 24 hours
Subjective/Interval History
-
Date of Service: September 07, 2024
denies nausea
Objective Data
-
Labs:
Laboratory Results
09/07/24
06:34
WBC 8.8
Hgb 8.2 L
Hct 24.4 L
Plt Count 130 D
Sodium 136
Potassium 3.8
Chloride 103
Carbon Dioxide 24
BUN 12
Creatinine 0.9
Glucose 112 H
Calcium 8.5
Total Bilirubin 0.6
AST 26
ALT 23
Alkaline Phosphatase 57
Vital Signs:
Vital Signs
Temp Pulse Resp BP Pulse Ox
98 F 98 18 136/76 97
09/07/24 11:50 09/07/24 11:50 09/07/24 11:50 09/07/24 11:50 09/07/24 11:50
I&O
09/06/24 09/07/24 09/08/24
06:59 06:59 06:59
Intake Total 480 / 480
Balance 480 / 480
[2024-09-07 15:57] VITALS: BP 132/74
--- NOTE | 2024-09-07 18:45 | W.PN.GI.CBS2 ---
Today's Communication / Plan
-
ok for diet, continue with cipro
Assessment / Plan
-
64-year-old male with no significant past medical history with NSAID/EtOH use p/w melena.
EUS yesterday showed large mostly cystic lesion in the tail of panc. There was a plane between the cystic lesion and stomach; This seems unlikely to be GIST, rather I suspect a cystic lesion of panc, possibly pseudocyst or other cystic lesion
(mucinous?). FNA performed, fluid aspirated and sent for analysis. Cipro for prophylaxis. He feels ok today. EGD yesterday showed cratered PUD, which is likely from NSAID use. Hgb remains stable. Ok to start diet today. If Hgb stable tomorrow
w/o signs of hemorrhage, can d/c home tomorrow with 3 day course of 250 mg oral cipro BID. Will need f/u with me as OP.
Total Time Spent with Patient (in minutes): 35
Subjective
Subjective
Date of Service: September 07, 2024
No events o/n.
Objective
Data Reviewed
Laboratory Data:
Laboratory Results
09/07/24 06:34
09/07/24 06:34
Laboratory Results
PT 14.4 Sec (11.4-14.6) 09/04/24 20:04
INR 1.14 09/04/24 20:04
APTT 22.2 Sec (23.4-35.0) L 09/04/24 20:04
Total Bilirubin 0.6 mg/dl (0.2-1.3) 09/07/24 06:34
AST 26 U/L (17-59) 09/07/24 06:34
ALT 23 U/L (0-50) 09/07/24 06:34
Alkaline Phosphatase 57 U/L (38-126) 09/07/24 06:34
Vital Signs and I&O:
Vital Signs
Temp Pulse Resp BP Pulse Ox
99.5 F 100 18 132/74 100
09/07/24 15:57 09/07/24 15:57 09/07/24 15:57 09/07/24 15:57 09/07/24 15:57
I&O
09/06/24 09/07/24 09/08/24
06:59 06:59 06:59
Intake Total 480 / 480 480 / 480
Balance 480 / 480 480 / 480
[2024-09-07 19:29] VITALS: BP 131/71
[2024-09-07 23:25] VITALS: BP 115/69
[2024-09-08 07:17] VITALS: BP 108/61
[2024-09-08 08:35] LABS: % Basophils 0.3 % (0-2); % Eosinophils 0.7 % (0-6); % Immature Granulocytes 0.7 % (0-0.5); % Lymphocytes 16.7 % (20.5-51.1); % Monocytes 14.6 % (1.7-9.3); Absolute Eosinophils 0.1 10^3/uL (0-0.7); Absolute Immature Granulocytes 0.1 10^3/uL (0-0.05); Absolute Lymphocytes 1.2 10^3/uL (1.2-3.4); Absolute Monocytes 1.1 10^3/uL (0.1-0.6); Absolute Neutrophils 4.8 10^3/uL (1.4-6.5); Hematocrit 23.5 % (39.0-52.0); Hemoglobin 7.9 g/dL (13.0-18.0); Mean Corp Hgb Conc. 33.6 g/dL (33.0-37.0); Mean Corpuscular Volume 89.4 fL (80.0-94.0); Nucleated Red Blood Cells % 0 % (-); Platelet Count 134 10^3/uL (130-400); Red Blood Cell Count 2.63 10^6/uL (4.70-6.10); Red Cell Dist. Width 15.6 % (11.5-14.5); White Blood Cell Count 7.2 10^3/uL (4.8-10.8)
[2024-09-08 08:56] LABS: ALT (SGPT) 22 U/L (0-50); AST (SGOT) 24 U/L (17-59); Albumin 3.1 g/dl (3.5-5.0); Alkaline Phosphatase 52 U/L (38-126); Blood Urea Nitrogen 11 mg/dl (9-20); Calcium 8.4 mg/dl (8.4-10.2); Carbon Dioxide 26 mmol/L (22-30); Chloride 102 mmol/L (98-107); Estimated Creatinine Clearance 93 ml/min; Glucose 104 mg/dl (70-99); Potassium 3.8 mmol/L (3.5-5.1); Sodium 137 mmol/L (135-145); Total Bilirubin 0.5 mg/dl (0.2-1.3); Total Protein 5.3 g/dl (6.3-8.2); eGFR > 60.00
[2024-09-08] MEDS: METAMUCIL, KONSYL PO (09:11)
[2024-09-08] MEDS: CYANOCOBALAMIN 1000 MCG IM (09:12)
[2024-09-08] MEDS: NSS (PRESERVATIVE FREE) 10 ML IV (09:13)
[2024-09-08] MEDS: PROTONIX IV 40 MG IV (09:13)
[2024-09-08] MEDS: CIPRO 400 MG 200 IV (10:01)
--- NOTE | 2024-09-08 10:47 | W.PN.HOSP.TC ---
Addendum entered and electronically signed by Nicholas Rodriguez MD 09/08/24 12:25:
Repeat hemoglobin 8.2. Okay for discharge
Time of discharge 38 minutes
Original Note:
Today's Communication/Plan
-
Monitor vital signs see plan
Repeat H&H
Possible discharge today
Path pending
Tolerating low-fat diet
Assessment / Plan
Assessment / Plan
General: Well Developed, Well Nourished and No Apparent Distress
HEENT: NormoCephalic, Moist mucous membranes and Atraumatic
Respiratory: Clear
Cardiac: S1/S2 and Regular Rhythm; No Murmur or Rub
GI: Soft, Non Tender, Non Distended and Normal Bowel Sounds
Musculoskeletal: No Edema
Neuro: Nonfocal/grossly intact
Syncope likely 2/2 acute GI bleed, suspect upper GI bleeding
Acute blood loss anemia 2/2 GI bleed
Status post EGD 09/05 with submuc[address] mass. Loo CT with possible gastric mass. s/o EUS with FNA; per GI now it appears like pancreatic cyst. biopsy pending. started on low fat. Per Gi possible dc tomorrow. Patient and family updated.
Also had nonbleeding ulcer
No further signs of bleeding, continue to monitor hemoglobin
GI following
-Protonix
Hemoglobin 7.9 today, repeat. No more bleeding. Likely will discharge today follow-up with GI outpatient
On Cipro per GI
Vitamin B12 deficiency
Started vitamin B12
Borderline elevated hypertension
-Never on antihypertensive therapy
Full code
DVT prophylaxis�SCDs
Anticipated Discharge: Today
Subjective/Interval History
-
Date of Service: September 08, 2024
Denies pain
Objective Data
-
Labs:
Laboratory Results
09/08/24 09/08/24
06:36 11:30
WBC 7.2
Hgb 7.9 L Pending
Hct 23.5 L Pending
Plt Count 134
Sodium 137
Potassium 3.8
Chloride 102
Carbon Dioxide 26
BUN 11
Creatinine 0.8
Glucose 104 H
Calcium 8.4
Total Bilirubin 0.5
AST 24
ALT 22
Alkaline Phosphatase 52
Vital Signs:
Vital Signs
Temp Pulse Resp BP Pulse Ox
98.4 F 82 16 108/61 99
09/08/24 07:17 09/08/24 07:17 09/08/24 07:17 09/08/24 07:17 09/08/24 07:17
I&O
09/07/24 09/08/24 09/09/24
06:59 06:59 06:59
Intake Total 920 / 920
Balance 920 / 920
[2024-09-08 12:15] LABS: Hematocrit 24.1 % (39.0-52.0); Hemoglobin 8.2 g/dL (13.0-18.0)
--- NOTE | 2024-09-08 12:22 | W.PN.GI.CBS2 ---
Today's Communication / Plan
-
Ok for d/c home
Assessment / Plan
-
64-year-old male with no significant past medical history with NSAID/EtOH use p/w melena.
EUS yesterday showed large mostly cystic lesion in the tail of panc. There was a plane between the cystic lesion and stomach; This seems unlikely to be GIST, rather I suspect a cystic lesion of panc, possibly pseudocyst or other cystic lesion
(mucinous?). FNA performed, fluid aspirated and sent for analysis. Cipro for prophylaxis. He feels ok today. EGD yesterday showed cratered PUD, which is likely from NSAID use. Hgb remains stable.
Had small melenic stool but Hgb stable. Likely residual melena. Ok to d/c home today with PPI BID. No need for prophylactic cipro (pt completed course). F/u with me in GI office.
Total Time Spent with Patient (in minutes): 35
Subjective
Subjective
Date of Service: September 08, 2024
Had small melenic stool
Objective
Data Reviewed
Laboratory Data:
Laboratory Results
09/08/24 11:19
09/08/24 06:36
Laboratory Results
PT 14.4 Sec (11.4-14.6) 09/04/24 20:04
INR 1.14 09/04/24 20:04
APTT 22.2 Sec (23.4-35.0) L 09/04/24 20:04
Total Bilirubin 0.5 mg/dl (0.2-1.3) 09/08/24 06:36
AST 24 U/L (17-59) 09/08/24 06:36
ALT 22 U/L (0-50) 09/08/24 06:36
Alkaline Phosphatase 52 U/L (38-126) 09/08/24 06:36
Vital Signs and I&O:
Vital Signs
Temp Pulse Resp BP Pulse Ox
98.4 F 82 16 108/61 99
09/08/24 07:17 09/08/24 07:17 09/08/24 07:17 09/08/24 07:17 09/08/24 09:05
I&O
09/07/24 09/08/24 09/09/24
06:59 06:59 06:59
Intake Total 920 / 920
Balance 920 / 920
--- NOTE | 2024-09-08 12:25 | W.DCSUMMARY ---
Discharge Summary
Discharge Data
Date of Admission: 09/04/24
Date of Discharge: 09/08/24
-
Pending Results: Yes
Hospital Course
64-year-old male came to the hospital after syncopal episode with acute GI bleed. Patient underwent endoscopy which showed submucosal mass. CT scan of the abdomen was done which showed possible gastric mass. Patient was seen by gastroenterology
throughout hospitalization. He underwent EUS with FNA and during EUS it appeared that patient likely has cystic lesion around pancreas where FNA was done and biopsy was still pending prior to patient going home. He was able to tolerate low-fat
diet prior to discharge. EGD also showed nonbleeding ulcer for which patient was kept on PPI. On labs he was also deficient in vitamin B12 which was repleted. Once his hemoglobin was stable and he was able to tolerate diet, he was then discharged
home with instructions to follow-up with all his physicians outpatient.
Discharge Plan
-
Patient Disposition: Home (Routine Discharge)
Discharge Diagnosis/Procedures: Syncope likely 2/2 acute GI bleed, suspect upper GI bleeding
Cystic pancreatic lesion
vitamin b12 deficiency
suspect dermoid lesion
Diet: Low Fat
Activity: As tolerated
Driving Restrictions: As prior to admission
Bathing Restrictions: None
Blood Work: CBC next week with primary care provider
Activity Restrictions/Additional Instructions:
Please follow-up with biopsy results with GI
Referrals:
Santiago Mcdonald DO [Family Provider] - in less than 1 week
Moncho Hamlin MD [Active] - in less than 1 week
Prescriptions:
New
pantoprazole [Protonix] 40 mg tablet,delayed release (DR/EC)
40 mg PO BID Qty: 60 0RF
ciprofloxacin HCl 250 mg tablet
250 mg PO BID 2 Days Qty: 4 0RF
cyanocobalamin (vitamin B-12) 1,000 mcg capsule
1,000 mcg PO DAILY Qty: 30 0RF
Discharge Orders:
Discharge Patient (As Directed); Ordered 09/08/24
Ordered By: Nicholas Rodriguez
Discharge Date and Time
Discharge Date/Time: 09/08/24 13:21
Print Language: NAMIBIAN
[2024-09-08 12:33] VITALS: BP 149/75
== END 2024-09-08 13:21 | disposition home or self-care (01) | DRG 375 ==
LOC: 4 EAST ACU 20:21
PROVIDERS: Internal Medicine Gastroenterology; Physician Assistant; ADMITTING PHYSICIAN Hospitalist; ATTENDING PHYSICIAN Internal Medicine; CONSULT PHYSICIAN Internal Medicine Gastroenterology; EMERGENCY PHYSICIAN Emergency Medicine; FAMILY PHYSICIAN Family Medicine
PROC: 0DJ08ZZ Inspection of Upper Intestinal Tract, Via Natural or Artificial Opening Endoscopic (ICD-10-PCS; 2024-09-05)
PROC: 0F9G8ZX Drainage of Pancreas, Via Natural or Artificial Opening Endoscopic, Diagnostic (ICD-10-PCS; 2024-09-06)
DX: C49.A2 Gastrointestinal stromal tumor of stomach (principal); D62 Acute posthemorrhagic anemia; K86.2 Cyst of pancreas; K92.2 Gastrointestinal hemorrhage, unspecified; R55 Syncope and collapse; R42 Dizziness and giddiness; K22.89 Other specified disease of esophagus; E53.8 Deficiency of other specified B group vitamins; F10.90 Alcohol use, unspecified, uncomplicated; R07.9 Chest pain, unspecified; K31.89 Other diseases of stomach and duodenum; D69.6 Thrombocytopenia, unspecified; I10 Essential (primary) hypertension; Z80.51 Family history of malignant neoplasm of kidney; Z82.49 Family history of ischemic heart disease and other diseases of the circulatory system; Z79.1 Long term (current) use of non-steroidal anti-inflammatories (NSAID); Z80.0 Family history of malignant neoplasm of digestive organs; Z86.0100 Personal history of colon polyps, unspecified
CPT/HCPCS: 88172; 88173; 88305; 71260; 74177; 80053; 82607; 82728; 82746; 82962; 83540; 83550; 85014; 85018; 85025; 85610; 85730; 86803; 86850; 86900; 86901; 88112; 88177; 88341; 88342; 93005; Q9967

== ENCOUNTER → 2025-08-26 08:02 | Outpatient (REF) | payer OTHER, SELFPAY | LOC: RCS 08:02 | PROVIDERS: ATTENDING PHYSICIAN Internal Medicine Cardiovascular Disease; FAMILY PHYSICIAN Family Medicine | DX: I48.0 Paroxysmal atrial fibrillation (principal); R00.2 Palpitations | CPT/HCPCS: 93306 ==